=== PATIENT | female | born 1955 | race Caucasian/White ===

== ENCOUNTER 2018-11-24 09:27 | Day surgery (SDC) | payer BC ==
[2018-11-24] MEDS ORDERED: Sodium Chloride 0.9% 10 ML Syringe FLUSH PRN (09:30)
[2018-11-24] MEDS ORDERED: Propofol 200 MG/20 ML SDV ONE (09:30)
[2018-11-24] MEDS ORDERED: Sodium Chloride 0.9% 1,000 ML IV SCH (09:30)
[2018-11-24] MEDS ORDERED: Midazolam 1 MG/ML 2 ML SDV ONE (09:30)
[2018-11-24] MEDS ORDERED: Midazolam 1 MG/ML 2 ML SDV IV ONE (10:30)
[2018-11-24] MEDS ORDERED: Propofol 200 MG/20 ML SDV IV ONE (10:30)
--- NOTE | 2018-11-24 10:33 | PCM.PN ---
- General Info Date of Service: 11/24/18 - Review of Systems Systems Review Comment:: 63-year-old female referred for colonoscopy. Her last colonoscopy was 10 years ago. She has noticed a change in her bowel pattern over the last year with increasing constipation and irregularity. She is medically stable to proceed today. Her recent history and physical is reviewed and no significant changes are noted. I discussed the proposed colonoscopy with the patient. Risks such as but not limited to bleeding and GI injury reviewed. She agrees to proceed. - Patient Data Vitals - Most Recent: Last Vital Signs Temp 98.8 F 11/24/18 09:30 Pulse 96 11/24/18 09:30 Resp 12 11/24/18 09:30 BP 172/82 H 11/24/18 09:30 Pulse Ox 95 11/24/18 09:30 Weight - Most Recent: 85.275 kg Med Orders - Current: Current Medications Sodium Chloride (Normal Saline) 1,000 mls @ 50 mls/hr IV ASDIRECTED CLAUDETTE Sodium Chloride (Saline Flush) 10 ml FLUSH Q8HR PRN PRN Reason: keep vein open - Problem List Review Problem List Initiated/Reviewed/Updated: Yes - My Orders Last 24 Hours: My Active Orders 11/23/18 14:15 Resuscitation Status Routine 11/24/18 09:30 Blood Glucose Check, Bedside [RC] BIDMEALS Peripheral IV Care [RC] . DIRECTED Vital Signs [RC] PER UNIT ROUTINE Sodium Chloride 0.9% [Normal Saline] 1,000 ml IV ASDIRECTED Sodium Chloride 0.9% [Saline Flush] 10 ml FLUSH Q8HR PRN Peripheral IV Insertion Adult [OM.PC] Routine 11/24/18 10:00 Patient to Empty Bladder [RC] ASDIRECTED 11/24/18 10:30 Verify Patient Consent Obtain [RC] ASDIRECTED 11/24/18 Breakfast Nothing Per Oral Diet [DIET] - Assessment Assessment:: Change in bowel habits - Plan Plan:: Colonoscopy
--- NOTE | 2018-11-24 11:04 | PCM.OPNOTE ---
- General Post-Op/Procedure Note Date of Surgery/Procedure: 11/24/18 Operative Procedure(s): Colonoscopy Findings: Extensive Sigmoid Diverticulosis Pre Op Diagnosis: Change in bowel habits Post-Op Diagnosis: Sigmoid Diverticulosis Anesthesia Technique: MAC Primary Surgeon: Ifeanyi Gandhi Pathology: none Output, Urine Amount: 0 EBL in mLs: 0 Complications: None Condition: Good
--- NOTE | 2018-11-24 17:41 | OR ---
DATE OF SURGERY: 11/24/2018 SURGEON: Ifeanyi Gandhi MD PREOPERATIVE DIAGNOSIS: Change in bowel habits. POSTOPERATIVE DIAGNOSIS: Sigmoid diverticulosis. OPERATION PERFORMED: Colonoscopy. INDICATIONS FOR SURGERY: This 63-year-old female is referred today for a colonoscopy. Her last colon exam was about 10 years ago. She has noticed over the last year a change in bowel habits with increased constipation and irregularity. FINDINGS: The patient has a moderate to extensive degree of diverticulosis in the sigmoid colon. There is some tortuosity in this region, but no sign of acute inflammation. The remainder of the colon appears normal. No polyps were seen on today's exam. PROCEDURE: The patient was taken to the operating room. She was given intravenous sedation, and with her in the left lateral decubitus position, digital rectal exam was performed showing no rectal masses. The Olympus colonoscope was inserted into the rectum. A retroflexed examination of the rectal canal was performed. The scope was then carefully advanced under direct visualization through the entire length of the colon until the cecum is reached. Cecal acquisition was confirmed by noting the normal internal cecal anatomy including the appendiceal orifice and ileocecal valve. The light was also noted to transilluminate the abdominal wall in the right lower quadrant. After examining the cecum, the scope was slowly withdrawn sequentially re-examining the colonic segments. Once the entire colon and rectum had been fully examined, the scope was removed and the patient was taken from the operating room in satisfactory condition. ESTIMATED BLOOD LOSS: Zero. COMPLICATIONS: None. PROGNOSIS: Good. /[id number]/MODL
== END 2018-11-24 12:05 | disposition home or self-care (01) ==
LOC: KA.SDS 09:27
PROVIDERS: ATTEND Surgery
DX: R19.4 Change in bowel habit (principal); K57.30 Diverticulosis of large intestine without perforation or abscess without bleeding; E11.9 Type 2 diabetes mellitus without complications; F32.9 Major depressive disorder, single episode, unspecified; E78.00 Pure hypercholesterolemia, unspecified; Z79.84 Long term (current) use of oral hypoglycemic drugs; Z79.899 Other long term (current) drug therapy
CPT/HCPCS: 45378; 82962; J2250; J2704

== ENCOUNTER 2019-08-03 13:20 | Emergency (ER) | payer BC ==
[2019-08-03] MEDS ORDERED: Sodium Chloride 0.9% 1,000 ML IV ONE (14:16)
[2019-08-03] MEDS ORDERED: Sodium Chloride 0.9% 1,000 ML ONE (14:16)
[2019-08-03] MEDS ORDERED: Sodium Chloride 0.9% 10 ML Syringe FLUSH PRN (14:16)
[2019-08-03 14:17] LABS: ANION GAP 17.5 mmol/L (5-15); CHLORIDE,CL 102 mmol/L (98-115); SODIUM,NA 141 mmol/L (136-145)
--- NOTE | 2019-08-03 14:50 | EDM.PDOC ---
ED HPI GENERAL MEDICAL PROBLEM - General Chief Complaint: General Stated Complaint: weakness Time Seen by Provider: 08/03/19 14:16 Source of Information: Reports: Patient History Limitations: Reports: No Limitations - History of Present Illness INITIAL COMMENTS - FREE TEXT/NARRATIVE: Patient 64-year-old female who presents to the emergency department via EMS with a complaint of weakness. Patient states that this is a chronic condition that is worsening over the last 2 months. Patient is seen by neurology in [place] and diagnosed with myositis. She is currently on steroid infusion on . Patient states that she could not sleep 48 hours following infusion and has had weakness since. States the weakness has not worsened, but just been persistent. Patient contacted the clinic and was suggested that she presented to the ER. Patient denies fever, covid 19 concerns, chest pain, shortness of breath, nausea, vomiting, diarrhea, or any recent falls. Onset: Gradual Duration: Chronic Severity: Mild Improves with: Reports: None Worsens with: Reports: None Associated Symptoms: Reports: Weakness. Denies: Chest Pain, Diaphoresis, Fever/ Chills, Headaches, Nausea/Vomiting, Rash, Shortness of Breath - Related Data Allergies Allergy/AdvReac Type Severity Reaction Status Date / Time No Known Drug Allergies Allergy Cannot Verified 07/22/19 10:46 Remember Home Meds: Home Meds Cyanocobalamin (Vitamin B-12) [B-12] 1,000 mcg PO ASDIRECTED 11/20/18 [History] Multivitamin [Multivitamins] 1 tab PO DAILY 11/20/18 [History] SitaGLIPtin [Januvia] 100 mg PO DAILY 11/20/18 [History] Venlafaxine [Effexor] 75 mg PO BID 11/20/18 [History] amLODIPine Besylate [Amlodipine Besylate] 5 mg PO DAILY 11/20/18 [History] atorvaSTATin Calcium [Atorvastatin Calcium] 20 mg PO DAILY 11/20/18 [History] metFORMIN HCl [Metformin HCl] 850 mg PO BIDMEALS 11/20/18 [History] Losartan Potassium [Cozaar] 100 mg PO DAILY 07/22/19 [History] hydroCHLOROthiazide [Hydrochlorothiazide] 12.5 mg PO DAILY 07/22/19 [History] Past Medical History HEENT History: Reports: Hard of Hearing Cardiovascular History: Reports: High Cholesterol, Hypertension Respiratory History: Reports: None Gastrointestinal History: Reports: Diverticulosis Genitourinary History: Reports: None PONY ROUGHER History: Reports: Musculoskeletal History: Reports: Back Pain, Chronic, Other (See Below) Other Musculoskeletal History: Myositis-awaiting biopsy results, on current methylprednisone IV treatment for that (severe weakness in the neck, upper and lower extremity muscles) Neurological History: Reports: None Psychiatric History: Reports: Depression Endocrine/Metabolic History: Reports: Diabetes, Type II, Obesity/BMI 30+ Hematologic History: Reports: None Immunologic History: Reports: None Oncologic (Cancer) History: Reports: None Dermatologic History: Reports: None - Infectious Disease History Infectious Disease History: Reports: Chicken Pox - Past Surgical History HEENT Surgical History: Reports: None Cardiovascular Surgical History: Reports: None GI Surgical History: Reports: Appendectomy, Colonoscopy Female Surgical History: Reports: None Endocrine Surgical History: Reports: None Neurological Surgical History: Reports: None Musculoskeletal Surgical History: Reports: Carpal Tunnel, Shoulder Surgery, Other (See Below) Other Musculoskeletal Surgeries/Procedures:: back surgery - ruptured disc Dermatological Surgical History: Reports: None Social & Family History - Family History Family Medical History: Noncontributory - Caffeine Use Caffeine Use: Reports: Coffee, Soda ED ROS GENERAL - Review of Systems Review Of Systems: Comprehensive ROS is negative, except as noted in HPI. Constitutional: Reports: Weakness, Fatigue HEENT: Reports: No Symptoms Respiratory: Reports: No Symptoms Cardiovascular: Reports: No Symptoms Endocrine: Reports: No Symptoms GI/Abdominal: Reports: No Symptoms : Reports: No Symptoms Musculoskeletal: Reports: No Symptoms Skin: Reports: No Symptoms Neurological: Reports: No Symptoms Psychiatric: Reports: No Symptoms Hematologic/Lymphatic: Reports: No Symptoms Immunologic: Reports: No Symptoms ED EXAM, GENERAL - Physical Exam Exam: See Below Exam Limited By: No Limitations General Appearance: Alert, WD/WN, No Apparent Distress Nose: Normal Inspection, Normal Mucosa, No Blood Throat/Mouth: Normal Inspection, Normal Oropharynx, No Airway Compromise Head: Atraumatic, Normocephalic Neck: Normal Inspection, Supple, Non-Tender Respiratory/Chest: No Respiratory Distress, Lungs Clear, Normal Breath Sounds, No Accessory Muscle Use, Chest Non-Tender Cardiovascular: Regular Rate, Rhythm, No Murmur GI/Abdominal: Normal Bowel Sounds, Soft, Non-Tender Back Exam: Normal Inspection, Full Range of Motion. No: CVA Tenderness (L), CVA Tenderness (R) Extremities: Normal Inspection, No Pedal Edema Neurological: Alert, Oriented, CN II-XII Intact, Normal Cognition Psychiatric: Normal Affect, Normal Mood Skin Exam: Warm, Dry, Intact, Normal Color, No Rash Lymphatic: No Adenopathy Course - Vital Signs Last Recorded V/S: Last Vital Signs Temp 96.5 F L 08/03/19 13:59 Pulse 101 H 08/03/19 13:59 Resp 22 H 08/03/19 13:59 BP 130/60 08/03/19 13:59 Pulse Ox 96 08/03/19 13:59 - Orders/Labs/Meds Orders: Active Orders 24 hr Category Date Time Status Peripheral IV Care [RC] . DIRECTED Care 08/03/19 14:16 Ordered Sodium Chloride 0.9% @ 999 MLS/HR (1000ml) Med 08/03/19 14:16 Ordered Sodium Chloride 0.9% [Normal Saline] 1,000 ml IV .BOLUS Sodium Chloride 0.9% [Saline Flush] Med 08/03/19 14:16 Ordered 10 ml FLUSH Q8HR PRN Peripheral IV Insertion Adult [OM.PC] Routine Oth 08/03/19 14:16 Ordered Medication Orders Sodium Chloride (Normal Saline) 1,000 mls @ 999 mls/hr IV .BOLUS ONE Stop: 08/03/19 15:16 Last Admin: 08/03/19 14:20 Dose: 999 mls/hr Sodium Chloride (Saline Flush) 10 ml FLUSH Q8HR PRN PRN Reason: keep vein open Labs: Laboratory Tests 08/03/19 08/03/19 08/03/19 Range/Units 13:50 13:50 14:10 WBC 13.89 H (5.00-10.00) 10^3/uL RBC 4.83 (3.80-5.50) 10^6/uL Hgb 14.0 (12.0-16.0) g/dL Hct 42.6 (37.0-47.0) % MCV 88.2 (82.0-92.0) fL MCH 29.0 (27.0-31.0) pg MCHC 32.9 (32.0-36.0) g/dL RDW 13.0 (11.5-14.5) % Plt Count 325 (150-400) 10^3/uL MPV 9.6 (7.4-10.4) fL Immature Gran % (Auto) 0.9 (0.0-5.0) % Neut % (Auto) 83.1 H (50.0-70.0) % Lymph % (Auto) 7.9 L (20.0-40.0) % [place]gs % (Auto) 7.4 (2.0-8.0) % Eos % (Auto) 0.4 L (1.0-3.0) % Baso % (Auto) 0.3 (0.0-1.0) % Neut # (Auto) 11.54 H (2.50-7.00) 10^3/uL Lymph # (Auto) 1.10 (1.00-4.00) 10^3/uL [place]gs # (Auto) 1.03 H (0.10-0.80) 10^3/uL Eos # (Auto) 0.05 L (0.10-0.30) 10^3/uL Baso # (Auto) 0.04 (0.00-0.10) 10^3/uL Immature Gran # (Auto) 0.13 (0.00-0.50) 10^3/uL Sodium 141 (136-145) mmol/L Potassium 4.3 (3.3-5.3) mmol/L Chloride 102 (98-115) mmol/L Carbon Dioxide 25.8 (21.0-32.0) mmol/L Anion Gap 17.5 H (5-15) mmol/L BUN 24 (6-25) mg/dL Creatinine 0.45 L (0.51-1.17) mg/dL Est Cr Clr Drug Dosing 110.50 mL/min Estimated GFR (MDRD) > 60 mL/min Glucose 169 H (75 - 99) mg/dL Calcium 9.3 (8.7-10.3) mg/dL Total Bilirubin 0.3 (0.2-1.0) mg/dL AST 57 H (15-37) U/L ALT 160 H (12-78) U/L Alkaline Phosphatase 56 (46-116) IU/L Total Protein 6.7 (6.4-8.2) g/dL Albumin 3.71 (3.00-4.80) g/dL Specimen Type Urinqcath Urine Color Yellow (YELLOW) Urine Appearance Slightly cloudy H (CLEAR) Urine pH 7.0 (5.0-9.0) Ur Specific [place] 1.025 (1.005-1.030) Urine Protein 100 H (NEGATIVE) mg/dL Urine Glucose (UA) Negative (NEGATIVE) mg/dL Urine Ketones Negative (NEGATIVE) mg/dL Urine Occult Blood Negative (NEGATIVE) Urine Nitrite Negative (NEGATIVE) Urine Bilirubin Negative (NEGATIVE) Urine Urobilinogen 0.2 (0.2-1.0) E.U./dL Ur Leukocyte Esterase Negative (NEGATIVE) U Hyaline Cast (Auto) Few Urine RBC 0-5 (0-5) /HPF Urine WBC 0-5 (0-5) /HPF Ur Epithelial Cells Few /LPF Urine Bacteria Few (NONE TO FEW) /HPF Meds: Medications Generic Name Dose Route Start Last Admin Trade Name Freq PRN Reason Stop Dose Admin Sodium Chloride 1,000 mls @ 999 mls/hr 08/03/19 14:16 08/03/19 14:20 Normal Saline IV 08/03/19 15:16 999 mls/hr .BOLUS ONE Administration Sodium Chloride 10 ml 08/03/19 14:16 Saline Flush FLUSH Q8HR PRN keep vein open Discontinued Medications Generic Name Dose Route Start Last Admin Trade Name Freq PRN Reason Stop Dose Admin Sodium Chloride Confirm 08/03/19 14:16 Normal Saline Administered 08/03/19 14:17 Dose 1,000 mls @ as directed .ROUTE .STK-MED ONE - Re-Assessments/Exams Free Text/Narrative Re-Assessment/Exam: 08/03/19 14:50 Patient afebrile, vital signs stable, denies any chest pain, shortness of breath. Discussed case with Dr. West, patient will be discharged home with follow-up in her office. Infusion will be continued on . However, will be a half dose. Departure - Departure Time of Disposition: 15:07 Disposition: Home, Self-Care 01 Condition: Good Clinical Impression: Weakness Myositis Qualifiers: Myositis type: unspecified type Myositis location: multiple sites Qualified Code(s): M60.9 - Myositis, unspecified - Discharge Information Instructions: Weakness, [id number], Myositis Ossificans Referrals: Katie Lagos MD [Primary Care Provider] - Forms: ED Department Discharge Additional Instructions: Follow-up with Dr. West. Infusion scheduled for with half dose. Return to emergency department sooner if symptoms continue or worsen. Sepsis Event Note - Evaluation Sepsis Screening Result: Possible Sepsis Risk - Focused Exam Vital Signs: Vital Signs Temp Pulse Resp BP Pulse Ox 08/03/19 13:59 96.5 F L 101 H 22 H 130/60 96 Date Exam was Performed: 08/03/19 Time Exam was Performed: 15:12 - My Orders Last 24 Hours: My Active Orders 08/03/19 14:16 Peripheral IV Care [RC] . DIRECTED Sodium Chloride 0.9% @ 999 MLS/HR (1000ml) Sodium Chloride 0.9% [Normal Saline] 1,000 ml IV .BOLUS Sodium Chloride 0.9% [Saline Flush] 10 ml FLUSH Q8HR PRN Peripheral IV Insertion Adult [OM.PC] Routine - Assessment/Plan Last 24 Hours: My Active Orders 08/03/19 14:16 Peripheral IV Care [RC] . DIRECTED Sodium Chloride 0.9% @ 999 MLS/HR (1000ml) Sodium Chloride 0.9% [Normal Saline] 1,000 ml IV .BOLUS Sodium Chloride 0.9% [Saline Flush] 10 ml FLUSH Q8HR PRN Peripheral IV Insertion Adult [OM.PC] Routine Assessment:: Weakness Plan: Follow-up with Dr. West
== END 2019-08-03 15:30 | disposition home or self-care (01) ==
LOC: KA.ED 13:20
DX: M60.9 Myositis, unspecified (principal); E78.00 Pure hypercholesterolemia, unspecified; I10 Essential (primary) hypertension; E11.9 Type 2 diabetes mellitus without complications; Z79.84 Long term (current) use of oral hypoglycemic drugs; E66.9 Obesity, unspecified; Z68.30 Body mass index [BMI] 30.0-30.9, adult; Z79.899 Other long term (current) drug therapy
CPT/HCPCS: 80053; 81001; 85025; 96360; 99284; J7030